=== PATIENT | female | born 1940 | race Two or more races ===

== ENCOUNTER 2024-07-20 12:02 | Inpatient (IN) | payer OTHER ==
[~2024-07-20] VITALS: Ht 147.3 cm; Wt 65.0 kg
--- NOTE | 2024-07-20 12:51 | ED.PDOC ---
History of Present Illness HPI Comments 84-year-old female with PMHx Dementia presents with a chief complaint of generalized weakness x onset this morning with associated cough x onset yesterday. Patients daughter reports that patient has been increasingly weak that she noticed started this morning. Patient does have sick contacts at home and has a cough as well. Patient is soft spoken, but states that she has no complaints at this time. Time Seen by MD: 12:39 Reviewed Notes: Medications, Allergies Allergies: Coded Allergies: NO KNOWN ALLERGIES (Unverified , 07/20/24) Information Source: Patient, Relative (Child) Mode of Arrival: Ambulatory Severity: Moderate Timing: Days Duration: Since onset Prehospital treatment: None Past Medical History PAST MEDICAL HISTORY: Dementia Surgical History: Denies all surgeries SENIOR HR GENERALIST History: Denies all SENIOR HR GENERALIST Hx Family History Family History: Reviewed,noncontributory to illness Social History Smoker: Non-Smoker Alcohol: Denies ETOH Use Drugs: Denies Drug Use Lives In: Home Constitutional: reports: weakness; denies: chills, diaphoresis, fatigue, fever, malaise, sweats, others EENTM: denies: blurred vision, double vision, ear bleeding, ear discharge, ear drainage, ear pain, ear ringing, eye pain, eye redness, hearing loss, mouth pain, mouth swelling, nasal discharge, nose bleeding, nose congestion, nose pain, photophobia, tearing, throat pain, throat swelling, voice changes, others Respiratory: reports: cough; denies: hemoptysis, orthopnea, SOB at rest, shortness of breath, SOB with excertion, stridor, wheezing, others Cardiovascular: denies: chest pain, dizzy spells, diaphoresis, Dyspnea on exertion, edema, irregular heart beat, left arm pain, lightheadedness, palp itations, PND, syncope, others Gastrointestinal: denies: abdomen distended, abdominal pain, blood streaked bowels, constipated, diarrhea, dysphagia, difficulty swallowing, hematemesis, melena, nausea, poor appetite, poor fluid intake, rectal bleeding, rectal pain, vomiting, others Genitourinary: denies: abnormal vagina bleeding, burning, dyspareunia, dysuria, flank pain, frequency, hematuria, incontinence, pain, , vagina discharge, urgency, others Neurological: denies: dizziness, fainting, headache, left sided numbness, left sided weakness, numbness, paresthesia, pre-existing deficit, right sided numbness, right sided weakness, seizure, speech problems, tingling, tremors, weakness, others Musculoskeletal: denies: back pain, gout, joint pain, joint swelling, muscle pain, muscle stiffness, neck pain, others Integumetry: denies: bruises, change in color, change in hair/nails, dryness, laceration, lesions, lumps, rash, wounds, others Allergic/Immunocompromised: denies: Difficulty Healing, Frequent Infections, Hives, Itching, others Hematologic/Lymphatic: denies: anemia, blood clots, easy bleeding, easy br uising, swollen glands, others Endocrine: denies: excessive hunger, excessive sweating, excessive thirst, excessive urination, flushing, intolerance to cold, intolerance to heat, unexplained weight gain, unexplained weight loss, others Psychiatric: denies: anxiety, bipolar disorder, depression, hopeless, panic disorder, schizophrenia, sleepless, suicidal, others All Other Systems: Reviewed and Negative Physical Exam General Appearance: Moderate Distress HEENT: Normal ENT Inspection, Pharynx Normal, TMs Normal Neck: Full Range of Motion, Non-Tender, Normal, Normal Inspection Respiratory: Chest Non-Tender, Lungs Clear, No Accessory Muscle Use, No Respiratory Distress, Normal Breath Sounds Cardiovascular: No Edema, No JVD, No Murmur, No Gallop, Normal Peripheral Pulses, Regular Rate/Rhythm Breast Exam: Deferred Gastrointestinal: No Organomegaly, Non Tender, No Pulsatile Mass, Normal Bowel Sounds, Soft Genitalia: Deferred Pelvic: Deferred Rectal: Deferred Extremities: No calf tenderness, Normal capillary refill, No pedal edema Musculoskeletal : Apperance: Normal Neurologic: senior planning analyst II-XII nml as Tested, Motor Weakness, No Sensory Deficits, Other (Generalized weakness) Cerebellar Function: Normal Reflexes: Normal Skin: Dry, Pallor, Warm Lymphatic: No Adenopathy Was a procedure done? Was a procedure done?: No Differential Dx Considerations may include: Generalized weakness, CVA, UTI X-Ray, Labs, Meds, VS Vital Signs Date Time Temp Pulse Resp B/P (MAP) Pulse Ox O2 Delivery O2 Flow Rate FiO2 07/20/24 13:10 100.7 107 20 128/74 (92) 96 Lab Test 07/20/24 15:16 07/20/24 14:21 Range/Units Urine Color Yellow Yellow Urine Clarity Clear Clear Urine pH 5.0 5.0-9.0 Urine Specific [place] 1.028 1.001-1.035 Urine Protein 1+ H Negative Urine Ketones Trace Negative Urine Blood Negative Negative /uL Urine Nitrite Negative Negative Urine Bilirubin Negative Negative Urine Urobilinogen Normal Negative mg/dL Urine Leukocyte Esterase Negative Negative /uL Urine RBC 3 0 - 4 /hpf Urine Microscopic WBC 1 0-5 /HPF Urine Squamous Epithelial Cells Few <5 /hpf Urine Bacteria None seen None Seen /hpf Urine Mucus Few None Seen Urine Glucose Normal Normal mg/dL White Blood Count 7.0 4.4-10.8 10^3/uL Red Blood Count 4.65 4.0-5.20 10^6/uL Hemoglobin 13.1 12.2-16.2 g/dL Hematocrit 40.0 36.0-46.0 % Mean Corpuscular Volume 86.1 80.0-100.0 fL Mean Corpuscular Hemoglobin 28.1 28.0-32.0 pg Mean Corpuscular Hemoglobin Concent 32.6 32.0-36.0 g/dL Red Cell Distribution Width 15.2 H 11.8-14.3 % Platelet Count 179 140-450 10^3/uL Mean Platelet Volume 8.6 6.9-10.8 fL Neutrophils (%) (Auto) 88.4 H 37.0-80.0 % Lymphocytes (%) (Auto) 5.1 L 10.0-50.0 % Monocytes (%) (Auto) 6.2 0.0-12.0 % Eosinophils (%) (Auto) 0.1 0.0-7.0 % Basophils (%) (Auto) 0.2 0.0-2.0 % Neutrophils # (Auto) 6.2 1.6-8.6 10 ^3/uL Lymphocytes # (Auto) 0.4 0.4-5.4 10 ^3/uL Monocytes # (Auto) 0.4 0-1.3 10 ^3/uL Eosinophils # (Auto) 0 0-0.8 10 ^3/uL Basophils # (Auto) 0 0-0.2 10 ^3/uL Nucleated Red Blood Cells 0.1 % Sodium Level 137 136-145 mmol/L Potassium Level 3.5 3.5-5.1 mmol/L Chloride Level 101 98-107 mmol/L Carbon Dioxide Level 25 20-31 mmol/L Anion Gap 11 5-15 Blood Urea Nitrogen 17 9-23 mg/dL Creatinine 1.04 H 0.550-1.02 mg/dL Glomerular Filtration Rate Calc 53 >90 mL/min BUN/Creatinine Ratio 16.3 10.0-20.0 Serum Glucose 127 H 74-106 mg/dL Calcium Level 9.8 8.7-10.4 mg/dL Chest X-Ray Impression: No acute intrathoracic abnormality. At this time the patient's CBC is within normal limits The chemistry panel is within normal limits The urine test is negative At this time, the patient was being admitted to the hospitalist The patient is still having some generalized weakness Images Reviewed?: Images reviewed and evaluated by me Time of 1ST Reevaluation: 13:09 Reevaluation 1ST: Unchanged Patient Education/Counseling: Diagnosis, Treatment, Prognosis Family Education/Counseling: Diagnosis, Treatment, Prognosis Departure 1 Departure Time of Disposition: 18:10 Impression: Primary Impression: Generalized weakness Disposition: ADMITTED INPATIENT Admit to: Med Surg Condition: Fair Critical Care Note Critical Care Time?: No Stability Stability form required: Yes Unstable for transfer: ED Physician Assesment (Clinical assesment) Heart Score Heart Score: Heart Score Response (Comments) Value History N/A 0 EKG N/A 0 Age N/A 0 Risk Factors N/A 0 Troponin N/A 0 Total 0 I personally scribed for ELLIS BUNN MD ([email or web address]) on 07/20/24 at 12:51. Electronically submitted by Nixon Harris ([email or web address]). I personally scribed for ELLIS BUNN MD ([email or web address]) on 07/20/24 at 15:54. Electronically submitted by Nixon Harris ([email or web address]). ELLIS BUNN MD Jul 20, 2024 12:51
--- NOTE | 2024-07-20 13:29 | DVH ---
XY CHEST TWO VIEWS ROUTINE, HISTORY: weakness COMPARISON: None None TECHNICAL DATA: 1 view of the chest was obtained. FINDINGS: Lines and tubes: None Cardiomediastinal silhouette: normal Pulmonary vasculature: normal Lung expansion: low Lung airspace: normal Lung interstitium: normal Pleura: normal Pneumothorax: no Bones: Rightward cuvature of the thoracic spine. Other: no IMPRESSION: No acute intrathoracic abnormality.
[2024-07-20 15:00] LABS: Basophils # (auto) 0 10 ^3/uL (0-0.2); Basophils % (auto) 0.2 % (0.0-2.0); Eosinophils # (auto) 0 10 ^3/uL (0-0.8); Eosinophils % (auto) 0.1 % (0.0-7.0); Hemoglobin 13.1 g/dL (12.2-16.2); Lymphocytes # (auto) 0.4 10 ^3/uL (0.4-5.4); Lymphocytes % (auto) 5.1 % (10.0-50.0); Mean Corpuscular Hemoglobin 28.1 pg (28.0-32.0); Mean Corpuscular Hgb Conc. 32.6 g/dL (32.0-36.0); Mean Corpuscular Volume 86.1 fL (80.0-100.0); Monocytes # (auto) 0.4 10 ^3/uL (0-1.3); Monocytes % (auto) 6.2 % (0.0-12.0); Neutrophils # (auto) 6.2 10 ^3/uL (1.6-8.6); Neutrophils % (auto) 88.4 % (37.0-80.0); Nucleated Red Blood Cells % 0.1 %; Platelet Count (auto) 179 10^3/uL (140-450); Red Blood Cells 4.65 10^6/uL (4.0-5.20); Red Cell Distribution Width 15.2 % (11.8-14.3)
[2024-07-20 15:14] LABS: Chloride 101 mmol/L (98-107); Potassium 3.5 mmol/L (3.5-5.1); Sodium 137 mmol/L (136-145)
[2024-07-20 15:15] LABS: Anion Gap 11 (5-15); Calcium 9.8 mg/dL (8.7-10.4); Carbon Dioxide 25 mmol/L (20-31)
[2024-07-20 15:18] LABS: Urine Bacteria None Seen /hpf (None Seen)
[2024-07-20 15:20] LABS: BUN/Creatinine Ratio 16.3 (10.0-20.0); Blood Urea Nitrogen 17 mg/dL (9-23)
[2024-07-20 15:31] LABS: Glucose 127 mg/dL (74-106)
[2024-07-20 15:34] LABS: Urine Blood Negative /uL (Negative); Urine Clarity Clear (Clear); Urine Color Yellow (Yellow); Urine Mucus FEW (None Seen); Urine Protein, UAD 1+ (Negative); Urine Specific Gravity 1.028 (1.001-1.035); Urine Squamous Epithelial Cell FEW /hpf (<5); Urine Urobilinogen Normal (Negative); Urine WBC 1 /HPF (0-5)
--- NOTE | 2024-07-20 21:50 | DVHHPRES ---
History of Present Illness Resident Creating Document: SAMEERA BOYER RESDIENT History of Present Illness 84-year-old female with no significant past medical history brought to the hospital due to generalized weakness. Per patient's daughter, the patient has a sick contact 5 days back which later on the patient developed cough, shortness of breaths, decreased oral intake, and progressively became altered. Due to altered mental status, the patient's could not provide proper history. Per patient's daughter, she has no fever, nausea, vomiting, diarrhea, constipation, or dysuria. PMHx: Age-related cognitive decline PSHx: Not significant Social history: Patient lives with the family at home, denies smoking, alcohol or any other drug use Allergic history: No known allergies Review of Systems Review of Systems General: Reports generalized weakness, decreased oral intake HEENT: No headaches, visiual changes, hearing loss, tinnitus, nasal congestion and discharge, and sore throat. Cardiovascular: Denies chest pain, palpitations, dyspnea on exertion, orthopnea, or claudication. Respiratory: Reports cough and shortness of breath Gastrointestinal: Denies nausea, vomiting, dysphagia, odynophagia, heartburn, abdominal pain, flatulence, bloating, diarrhea, constipation, change in stool, or blood in stool. Genitourinary: No dysuria, hematuria, discharge, frequency, urgency, nocturia, incontinence, and urinary retention. Endocrine: No heat or cold intolerance, polydipsia, polyuria, and polyphagia. Neurological: Per patient's daughter the, the patient is being more altered from baseline Psychiatric: Denies depression, anxiety,or insomnia. Musculoskeletal: Denies neck pain, stiffness and swelling, back pain, muscle weakness, joint pain, stiffness, swelling, or limited range of motion. Skin: No rashes, itching, skin lesion, changes in hair, nail, skin texture and breast. Hematologic/Lymphatic: Denies easy bruising, bleeding tendencies, or lymph node enlargement. Allergies: Coded Allergies: NO KNOWN ALLERGIES (Unverified , 07/20/24) Exam Vital Signs Vital Signs Date Time Temp Pulse Resp B/P (MAP) Pulse Ox O2 Delivery O2 Flow Rate FiO2 07/20/24 13:10 100.7 107 20 128/74 (92) 96 Exam General Appearance: Confused, just oriented to person, disoriented to time and place HEENT: Atraumatic, PERRLA, EOMI, Mucous membrane moist/pink Respiratory: Bilateral crackles Cardiovascular: Regular rate, Normal S1, Normal S2, No murmurs, no chest wall tenderness Abdominal: Normal bowel sounds, Soft, No tenderness, No hepatospenomegaly, No masses Extremities: No clubbing, No cyanosis, No edema, Normal pulses, No tenderness/swelling Skin: No rashes, No breakdown, No significant lesion Neuro: Normal gait, Normal speech, Strength at 5/5 X4 ext, Normal tone, Sensation intact, Cranial nerves 3-12 NL, Reflexes 2+ Psych/Mental Status: Mental status NL, Mood NL Labs/Xrays Labs Test 07/20/24 15:16 07/20/24 14:21 Range/Units Urine Color Yellow Yellow Urine Clarity Clear Clear Urine pH 5.0 5.0-9.0 Urine Specific [place] 1.028 1.001-1.035 Urine Protein 1+ H Negative Urine Ketones Trace Negative Urine Blood Negative Negative /uL Urine Nitrite Negative Negative Urine Bilirubin Negative Negative Urine Urobilinogen Normal Negative mg/dL Urine Leukocyte Esterase Negative Negative /uL Urine RBC 3 0 - 4 /hpf Urine Microscopic WBC 1 0-5 /HPF Urine Squamous Epithelial Cells Few <5 /hpf Urine Bacteria None seen None Seen /hpf Urine Mucus Few None Seen Urine Glucose Normal Normal mg/dL White Blood Count 7.0 4.4-10.8 10^3/uL Red Blood Count 4.65 4.0-5.20 10^6/uL Hemoglobin 13.1 12.2-16.2 g/dL Hematocrit 40.0 36.0-46.0 % Mean Corpuscular Volume 86.1 80.0-100.0 fL Mean Corpuscular Hemoglobin 28.1 28.0-32.0 pg Mean Corpuscular Hemoglobin Concent 32.6 32.0-36.0 g/dL Red Cell Distribution Width 15.2 H 11.8-14.3 % Platelet Count 179 140-450 10^3/uL Mean Platelet Volume 8.6 6.9-10.8 fL Neutrophils (%) (Auto) 88.4 H 37.0-80.0 % Lymphocytes (%) (Auto) 5.1 L 10.0-50.0 % Monocytes (%) (Auto) 6.2 0.0-12.0 % Eosinophils (%) (Auto) 0.1 0.0-7.0 % Basophils (%) (Auto) 0.2 0.0-2.0 % Neutrophils # (Auto) 6.2 1.6-8.6 10 ^3/uL Lymphocytes # (Auto) 0.4 0.4-5.4 10 ^3/uL Monocytes # (Auto) 0.4 0-1.3 10 ^3/uL Eosinophils # (Auto) 0 0-0.8 10 ^3/uL Basophils # (Auto) 0 0-0.2 10 ^3/uL Nucleated Red Blood Cells 0.1 % Sodium Level 137 136-145 mmol/L Potassium Level 3.5 3.5-5.1 mmol/L Chloride Level 101 98-107 mmol/L Carbon Dioxide Level 25 20-31 mmol/L Anion Gap 11 5-15 Blood Urea Nitrogen 17 9-23 mg/dL Creatinine 1.04 H 0.550-1.02 mg/dL Glomerular Filtration Rate Calc 53 >90 mL/min BUN/Creatinine Ratio 16.3 10.0-20.0 Serum Glucose 127 H 74-106 mg/dL Calcium Level 9.8 8.7-10.4 mg/dL Assessment/Plan Assessment/Plan Metabolic encephalopathy likely due to pneumonia Pneumonia, likely due to Gram-positive Gram-negative bacteria/viral Influenza type A Chest x-ray shows bilateral haziness Influenza type a is positive Influenza type B and COVID-19 are negative Check MRSA nares, blood/sputum culture Empiric antibiotic of azithromycin and ceftriaxone Tamiflu IV fluid Breathing treatment Age-related cognitive dysfunction DIET: Regular diet DVT PROPHYLAXIS: Lovenox CODE STATUS: Follow up with the side of more than 21 minutes, full code DISPOSITION: Med/surge Patient's status and paln discussed with the patient and the patient's daughter at the bedside. Case discussed with Dr. Quezada. Plan discussed with: Patient, Other (RN) Date of Service: Jul 20, 2024 Billing Provider: RUDDY HORTON MD Common Visit Codes: [id number] INP/OBS CARE (HIGH) SAMEERA BOYER RESDIENT Jul 20, 2024 21:50 RUDDY HORTON MD Jul 27, 2024 15:55
[2024-07-20 22:25] VITALS: PULSE 86; RESP 26; O2SAT 96
[2024-07-20] MEDS: ACETAMINOPHEN 325 MG TAB PO ONE (22:39)
[2024-07-20] MEDS: SODIUM CHLORIDE 0.9% 1,000 ML IV SCH (22:45)
[2024-07-20 22:58] LABS: Rapid Influenza A Positive (Negative); Rapid Influenza B Negative (Negative)
[2024-07-20 23:20] LABS: COVID19 ANTIGEN SOFIA FIA NEGATIVE (NEGATIVE)
[2024-07-20 23:27] LABS: Amphetamine Screen, Urine Neg (NEGATIVE); Barbiturate Scree,Urine Neg (NEGATIVE); Benzodiazephine Screen, Urine Neg (NEGATIVE); Cannabinoid Screen, Urine Neg (NEGATIVE); Cocaine Screen, Urine Neg (NEGATIVE); Opiate Scree,Urine Neg (NEGATIVE); Phencyclidine Screen, Urine Neg (NEGATIVE)
[2024-07-20 23:39] VITALS: PULSE 82; RESP 24; O2SAT 93
[2024-07-20 23:43] LABS: Albumin 4.6 g/dL (3.2-4.8); Bilirubin, Direct 0.1 mg/dL (<0.3); Bilirubin, Total 0.4 mg/dL (0.2-1.0); Total Protein 7.9 g/dL (5.7-8.2)
[2024-07-21] VITALS (20 sets, daily range): BP systolic 119–143; BP diastolic 50–72; PULSE 72–102; RESP 15–24; TEMP 98.3–102.2; O2SAT 91–100
[2024-07-21] MEDS: SODIUM CHLORIDE 0.9% 1,000 ML IV ONE (00:08)
[2024-07-21] MEDS: cefTRIAXone 1GM/50ML D5W 50 ML IV ONE (00:08)
[2024-07-21] MEDS: ENOXAPARIN SOD 40 MG/0.4 ML SYRINGE SC ONE (00:09)
[2024-07-21] MEDS: AZITHROMYCIN 500MG/ 250ML 250 ML IV ONE (01:03)
[2024-07-21] MEDS ORDERED: MULT-1058 PO (04:22)
[2024-07-21] MEDS: OSELTAMIVIR 30 MG CAP PO ONE (05:54)
[2024-07-21] MEDS: ALBUTEROL SULF 2.5 MG/0.5ML(0.5%) NEB SOLN NEB SCH (08:03)
[2024-07-21] MEDS: IPRATROPIUM BROM 0.5 MG/2.5ML INH SOL NEB SCH (08:06)
[2024-07-21 09:36] LABS: Basophils # (auto) 0 10 ^3/uL (0-0.2); Basophils % (auto) 0.3 % (0.0-2.0); Eosinophils # (auto) 0 10 ^3/uL (0-0.8); Hematocrit 35.6 % (36.0-46.0); Hemoglobin 11.5 g/dL (12.2-16.2); Lymphocytes # (auto) 1.4 10 ^3/uL (0.4-5.4); Lymphocytes % (auto) 28.3 % (10.0-50.0); Mean Corpuscular Hemoglobin 27.8 pg (28.0-32.0); Mean Corpuscular Hgb Conc. 32.3 g/dL (32.0-36.0); Mean Corpuscular Volume 86.3 fL (80.0-100.0); Monocytes # (auto) 0.5 10 ^3/uL (0-1.3); Monocytes % (auto) 10.5 % (0.0-12.0); Neutrophils # (auto) 3.1 10 ^3/uL (1.6-8.6); Neutrophils % (auto) 60.9 % (37.0-80.0); Nucleated Red Blood Cells % 0.1 %; Platelet Count (auto) 171 10^3/uL (140-450); Red Blood Cells 4.12 10^6/uL (4.0-5.20); Red Cell Distribution Width 15.1 % (11.8-14.3); White Blood Cell 5.1 10^3/uL (4.4-10.8)
[2024-07-21] MEDS: cefTRIAXone 1GM/50ML D5W 50 ML IV SCH (09:37)
[2024-07-21 09:39] LABS: Alanine Aminotransferase 19 U/L (7-40); Alkaline Phosphatase 78 U/L (46-116); Anion Gap 9 (5-15); BUN/Creatinine Ratio 16.3 (10.0-20.0); Blood Urea Nitrogen 15 mg/dL (9-23); Carbon Dioxide 27 mmol/L (20-31); Chloride 105 mmol/L (98-107); Glucose 104 mg/dL (74-106); Sodium 141 mmol/L (136-145)
[2024-07-21] MEDS: ENOXAPARIN SOD 40 MG/0.4 ML SYRINGE SC SCH (09:39)
[2024-07-21 09:40] LABS: Albumin 4.1 g/dL (3.2-4.8); Aspartate Aminotransferase 35 U/L (13-40)
[2024-07-21 09:41] LABS: Bilirubin, Total 0.3 mg/dL (0.2-1.0); Total Protein 7.1 g/dL (5.7-8.2)
[2024-07-21 09:44] LABS: Calcium 8.6 mg/dL (8.7-10.4)
[2024-07-21] MEDS: POTASSIUM CHL 20MEQ/100ML 100 ML IV SCH (11:29)
--- NOTE | 2024-07-21 12:42 | ECG ---
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
[2024-07-21] MEDS ORDERED: ACETAMINOPHEN 325 MG TAB PO PRN (13:15)
[2024-07-21] MEDS: Ensure HIGH Protein Chocolate 8oz Bottle PO SCH (13:23)
[2024-07-21] MEDS: AZITHROMYCIN 500MG/ 250ML 250 ML IV SCH (13:26)
--- NOTE | 2024-07-21 19:12 | DVHPNRES ---
Progress Note Date Seen: Jul 21, 2024 Resident Creating Document: CAMPBELL LEDBETTER RESIDENT Has the PT tested + for MRSA If YES, has PT been informed?: No Medical Necessity Reason Pt with a Central, PICC or Fol: No Subjective Review of Systems 84-year-old female with no significant past medical history brought to the hospital due to generalized weakness. Per patient's daughter, the patient has a sick contact 5 days back which later on the patient developed cough, shortness of breaths, decreased oral intake, PMHx: Age-related cognitive decline, remote history of HTN PSHx: Not significant Social history: Patient lives with the family at home, denies smoking, alcohol or any other drug use Allergic history: No known allergies Objective vital signs Vital Sign Date Time Temp Pulse Resp B/P (MAP) Pulse Ox O2 Delivery O2 Flow Rate FiO2 07/21/24 18:40 98.7 98.7 07/21/24 17:00 102 16 125/55 (78) 93 07/21/24 10:00 Room Air* 0 21 Total Intake and Output 07/20/24 07/20/24 07/21/24 15:00 23:00 07:00 Intake Total 1870 ml Output Total 125 ml Balance 1745 ml medications Current Medications Medications Dose Ordered Sig/Roger Route Start Time Stop Time Status Last Admin Dose Admin Ceftriaxone Sodium 50 ml @ 100 mls/hr DAILY@09 IV 07/21/24 09:00 07/21/24 09:37 100 MLS/HR Azithromycin 250 ml @ 125 mls/hr DAILY IV 07/21/24 10:00 07/21/24 13:26 125 MLS/HR Sodium Chloride 1,000 ml @ 100 mls/hr Q10H IV 07/20/24 22:45 07/21/24 02:45 100 MLS/HR Albuterol 2.5 mg Q4HWA BANNER 07/21/24 06:00 07/21/24 14:16 2.5 MG Ipratropium [place] 0.5 mg Q4HWA BANNER 07/21/24 06:00 07/21/24 14:16 0.5 MG Enoxaparin Sodium 40 mg DAILY SC 07/21/24 10:00 07/21/24 09:39 40 MG Oseltamivir Phosphate 30 mg DAILY PO 07/22/24 10:00 07/25/24 10:01 Enteral Nutritional Formula 240 ml TIDWM PO 07/21/24 12:00 07/21/24 18:39 240 ML Acetaminophen 600 mg Q6HP PRN PO 07/21/24 13:15 Examination General Appearance: alert HEENT: Atraumatic, PERRLA, EOMI, Mucous membrane moist/pink Respiratory: clear lungs Cardiovascular: Regular rate, Normal S1, Normal S2, No murmurs, no chest wall tenderness Abdominal: Normal bowel sounds, Soft, No tenderness, No hepatospenomegaly, No masses Extremities: No clubbing, No cyanosis, No edema, Normal pulses, No tenderness/swelling Skin: No rashes, No breakdown, No significant lesion Neuro: Normal gait, Normal speech, Strength at 5/5 X4 ext, Normal tone, Sensation intact, Cranial nerves 3-12 NL, Reflexes 2+ Psych/Mental Status: Mental status NL, Mood NL laboratory and microbiology Laboratory Tests 07/21/24 08:30 Test 07/21/24 08:30 Range/Units Serum Glucose 104 74-106 mg/dL Microbiology Date/Time Source Procedure Growth Status 07/21/24 08:14 Sputum Gram Stain - Final Resulted 07/21/24 08:14 Sputum Respiratory Culture Pending Resulted 07/21/24 06:00 Nose MRSA Screen - Final Complete Problem List/Assessment/Plan Problem List/Assessment/Plan Metabolic encephalopathy likely due to pneumonitis resolved Viral pneumonitis Influenza type A Chest x-ray shows bilateral haziness Influenza type a is positive Influenza type B and COVID-19 are negative Check MRSA nares, blood/sputum culture Empiric antibiotic of azithromycin and ceftriaxone Tamiflu Breathing treatment Hypokalemia K IV + Age-related cognitive dysfunction DIET: Regular diet DVT PROPHYLAXIS: Lovenox CODE STATUS: Follow up with the side of more than 21 minutes, full code DISPOSITION: Med/surge Patient's status and paln discussed with the patient and the patient's daughter at the bedside. Case discussed with Dr. Harris Plan discussed with: Patient, Other (rn) My Orders My Orders Orders - CAMPBELL LEDBETTER RESIDENT Procedure Category Date Status Time Nutritional PHA 07/21/24 In Process Supplements (Ensure 12:00 Insert Midline ORDERS 07/21/24 Transmitted 12:45 Acetaminophen Tablet PHA 07/21/24 In Process (Tylenol Tablet) 13:15 Date of Service: Jul 21, 2024 Billing Provider: YOSEPH HARRIS MD Common Visit Codes: [id number] INP/OBS CARE(HIGH) CAMPBELL LEDBETTER RESIDENT Jul 21, 2024 19:12 YOSEPH HARRIS MD Jul 25, 2024 09:23
[2024-07-22] VITALS (12 sets, daily range): BP systolic 111–131; BP diastolic 62–68; PULSE 60–100; RESP 16–18; TEMP 98–99.7; O2SAT 68–100
[2024-07-22] MEDS: OSELTAMIVIR 30 MG CAP PO SCH (08:57)
[2024-07-22] MEDS: BUDESONIDE (INHALATION) 0.5 MG/2 ML NEB NEB SCH (10:31)
[2024-07-22] MEDS ORDERED: TAMIF30 PO (13:19)
[2024-07-22] MEDS ORDERED: ALB5IS NEB (13:19)
[2024-07-22] MEDS ORDERED: DEXT1SYP9 PO (13:19)
[2024-07-22] MEDS ORDERED: ACET-1882 PO (13:19)
[2024-07-22 14:29] LABS: Chloride 105 mmol/L (98-107); Potassium 3.6 mmol/L (3.5-5.1); Sodium 140 mmol/L (136-145)
[2024-07-22 14:30] LABS: Anion Gap 8 (5-15); Calcium 8.3 mg/dL (8.7-10.4); Carbon Dioxide 27 mmol/L (20-31)
[2024-07-22 14:35] LABS: BUN/Creatinine Ratio 16.3 (10.0-20.0); Blood Urea Nitrogen 14 mg/dL (9-23)
[2024-07-22 14:43] LABS: Glucose 162 mg/dL (74-106)
[2024-07-22] MEDS ORDERED: ALBUAER3 IN (19:05)
--- NOTE | 2024-07-22 19:10 | DVHDSRES ---
Discharge Summary Date of Admission Resident Creating Document: CAMPBELL LEDBETTER RESIDENT Jul 20, 2024 at 21:49 Date of Discharge: Jul 22, 2024 Admitting Diagnosis Metabolic encephalopathy likely due to pneumonitis resolved Labs/Diagnostic Data: Laboratory Results Test 07/22/24 14:04 07/21/24 08:30 07/20/24 23:12 07/20/24 22:16 Sodium Level 140 mmol/L (136-145) Potassium Level 3.6 mmol/L (3.5-5.1) Chloride Level 105 mmol/L (98-107) Carbon Dioxide Level 27 mmol/L (20-31) Anion Gap 8 (5-15) Blood Urea Nitrogen 14 mg/dL (9-23) Creatinine 0.86 mg/dL (0.550-1.02) Glomerular Filtration Rate Calc 67 mL/min (>90) BUN/Creatinine Ratio 16.3 (10.0-20.0) Serum Glucose 162 mg/dL (74-106) Calcium Level 8.3 mg/dL (8.7-10.4) White Blood Count 5.1 10^3/uL (4.4-10.8) Red Blood Count 4.12 10^6/uL (4.0-5.20) Hemoglobin 11.5 g/dL (12.2-16.2) Hematocrit 35.6 % (36.0-46.0) Mean Corpuscular Volume 86.3 fL (80.0-100.0) Mean Corpuscular Hemoglobin 27.8 pg (28.0-32.0) Mean Corpuscular Hemoglobin Concent 32.3 g/dL (32.0-36.0) Red Cell Distribution Width 15.1 % (11.8-14.3) Platelet Count 171 10^3/uL (140-450) Mean Platelet Volume 8.5 fL (6.9-10.8) Neutrophils (%) (Auto) 60.9 % (37.0-80.0) Lymphocytes (%) (Auto) 28.3 % (10.0-50.0) Monocytes (%) (Auto) 10.5 % (0.0-12.0) Eosinophils (%) (Auto) 0.0 % (0.0-7.0) Basophils (%) (Auto) 0.3 % (0.0-2.0) Neutrophils # (Auto) 3.1 10 ^3/uL (1.6-8.6) Lymphocytes # (Auto) 1.4 10 ^3/uL (0.4-5.4) Monocytes # (Auto) 0.5 10 ^3/uL (0-1.3) Eosinophils # (Auto) 0 10 ^3/uL (0-0.8) Basophils # (Auto) 0 10 ^3/uL (0-0.2) Nucleated Red Blood Cells 0.1 % Hemoglobin A1c 5.9 % A1C (<5.7) Total Bilirubin 0.3 mg/dL (0.2-1.0) Aspartate Amino Transferase (AST) 35 U/L (13-40) Alanine Aminotransferase (ALT) 19 U/L (7-40) Alkaline Phosphatase 78 U/L (46-116) Total Protein 7.1 g/dL (5.7-8.2) Albumin 4.1 g/dL (3.2-4.8) Lactic Acid Level 1.2 mmol/L (0.4-2.0) Magnesium Level 2.0 mg/dL (1.6-2.6) Direct Bilirubin 0.1 mg/dL (<0.3) Ammonia 28 umol/L (11-32) Vitamin B12 Level 948 pg/mL (211-911) Vitamin D 25-Hydroxy 31.6 ng/mL (30.0-100) Thyroid Stimulating Hormone (TSH) 0.44 uIU/mL (0.55-4.78) Influenza Type A Antigen Positive (Negative) Influenza Type B Antigen Negative (Negative) SARS-CoV-2 Antigen (Rapid) Negative (NEGATIVE) Test 07/20/24 15:16 Urine Color Yellow (Yellow) Urine Clarity Clear (Clear) Urine pH 5.0 (5.0-9.0) Urine Specific [place] 1.028 (1.001-1.035) Urine Protein 1+ (Negative) Urine Ketones Trace (Negative) Urine Blood Negative /uL (Negative) Urine Nitrite Negative (Negative) Urine Bilirubin Negative (Negative) Urine Urobilinogen Normal mg/dL (Negative) Urine Leukocyte Esterase Negative /uL (Negative) Urine RBC 3 /hpf (0 - 4) Urine Microscopic WBC 1 /HPF (0-5) Urine Squamous Epithelial Cells Few /hpf (<5) Urine Bacteria None seen /hpf (None Seen) Urine Mucus Few (None Seen) Urine Glucose Normal mg/dL (Normal) Urine Opiates Screen Neg (NEGATIVE) Urine Fentanyl Screen Neg (NEGATIVE) Urine Barbiturates Screen Neg (NEGATIVE) Urine Phencyclidine Screen Neg (NEGATIVE) Urine Amphetamines Screen Neg (NEGATIVE) Urine Benzodiazepines Screen Neg (NEGATIVE) Urine Cocaine Screen Neg (NEGATIVE) Urine Cannabinoids Screen Neg (NEGATIVE) Other Laboratory Tests 07/22/24 14:04 07/21/24 08:30 Brief Hx & Hospital Course: An 84-year-old female with 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 Imaging revealed bilateral chest haziness, and testing was positive for influenza type A. The patient was diagnosed with viral pneumonitis and metabolic encephalopathy secondary to her respiratory condition. Treatment included supportive care with Tamiflu, empiric antibiotics (azithromycin and ceftriaxone), and breathing treatments, along with electrolyte repletion for hypokalemia. The patient showed significant clinical improvement with resolution of encephalopathy and stabilization of respiratory symptoms. She was discharge with tylenol, albuterol, cough syrup and oseltamivir. Her status was thoroughly discussed with her and her family at the bedside to ensure understanding of the management plan and follow-up needs. General Appearance: alert HEENT: Atraumatic, PERRLA, EOMI, Mucous membrane moist/pink Respiratory: clear lungs Cardiovascular: Regular rate, Normal S1, Normal S2, No murmurs, no chest wall tenderness Abdominal: Normal bowel sounds, Soft, No tenderness, No hepatospenomegaly, No masses Extremities: No clubbing, No cyanosis, No edema, Normal pulses, No tenderness/swelling Skin: No rashes, No breakdown, No significant lesion Neuro: Normal gait, Normal speech, Strength at 5/5 X4 ext, Normal tone, Sensation intact, Cranial nerves 3-12 NL, Reflexes 2+ Psych/Mental Status: Mental status NL, Mood NL Case discussed with Dr Harris Time spent on care 23 min Operations or Procedures XY CHEST TWO VIEWS ROUTINE, HISTORY: weakness COMPARISON: None None TECHNICAL DATA: 1 view of the chest was obtained. FINDINGS: Lines and tubes: None Cardiomediastinal silhouette: normal Pulmonary vasculature: normal Lung expansion: low Lung airspace: normal Lung interstitium: normal Pleura: normal Pneumothorax: no Bones: Rightward cuvature of the thoracic spine. Other: no IMPRESSION: No acute intrathoracic abnormality. Condition at Discharge: Stable Final Diagnosis/Problems List Metabolic encephalopathy likely due to pneumonitis resolved Viral pneumonitis Influenza type A Hypokalemia resolved Age-related cognitive dysfunction Discharge Disposition: Home Discharge Instruct/Medications Diet: Regular Activity: Light activity Follow Up/Referral: [facility] Medications: see prescription Discharge Statement: "Patient was advised to return to the ER or call 911 if any headaches, dizziness, shortness of breath, chest pain, abdominal pain, bleeding, fevers, or worsening of medical condition. Patient was counseled about treatment plan, medications, possible side effects, patientverbalized understanding. All questions were answered to the best of my ability. This discharge took greater then 30 minutes in planning, reviewing documentation, counseling the patient, and discussing with other team members." ASSESSMENT ASSESSMENT Assessment influenza Date of Service: Jul 22, 2024 Billing Provider: YOSEPH HARRIS MD Common Visit Codes: 33042-MUB/OBS DISCH DAY >30min CAMPBELL LEDBETTER RESIDENT Jul 22, 2024 19:10 YOSEPH HARRIS MD Jul 25, 2024 09:24
== END 2024-07-22 17:40 | disposition home or self-care (01) | DRG 193 ==
LOC: ER 12:02 → OVERFLOW 21:49 → WEST WING 07-21 01:53
PROVIDERS: ADMIT Student in an Organized Health Care Education/Training Program; ATTEND Student in an Organized Health Care Education/Training Program
DX: J10.1 Influenza due to other identified influenza virus with other respiratory manifestations (principal); G93.41 Metabolic encephalopathy; J12.9 Viral pneumonia, unspecified; E87.6 Hypokalemia; Z20.822 Contact with and (suspected) exposure to COVID-19; F03.90 Unspecified dementia, unspecified severity, without behavioral disturbance, psychotic disturbance, mood disturbance, and anxiety
CPT/HCPCS: 36415; 71046; 80048; 80053; 80076; 80307; 81001; 82140; 82306; 82607; 83036; 83605; 83735; 84443; 85025; 87040; 87070; 87081; 87205; 87426; 87804; 93005; 94640; 96365; 96367; 96372; G0378; G9035; J3480

== ENCOUNTER 2024-11-09 13:08 | Inpatient (IN) | payer OTHER ==
[~2024-11-09] VITALS: Ht 147.3 cm; Wt 60.9 kg
[~2024-11-09 13:08] MED LIST: ACET-1882 PO; ALBUAER3 IN; DEXT1SYP9 PO; MULT-1058 PO; TAMIF30 PO
--- NOTE | 2024-11-09 16:17 | ED.PDOC ---
Musculoskeletal HPI Comments 84 year old female brought in by daughter presents to the ED with chief complaint of right hip pain and fall. Daughter reports that the patient had complained of right hip pain and difficulty bearing weight yesterday when the patient normally is able to ambulate on her own. Daughter relays that today when leaving the patient in bed for a moment and coming back into the room, she found the patient on the floor and did not witness her fall. Daughter states that the patient does not remember the events leading to her fall due to her dementia and the patient had an associated vomiting episode after eating after her fall. Daughter notes she is unsure if patient hit her head or not. Patient denies any numbness, weakness, chest pain, and SOB. Chief Complaint: Fall Injury Time Seen by MD: 16:15 Reviewed Notes: Nurses Notes, Medications, Allergies Allergies: Coded Allergies: NO KNOWN ALLERGIES (Unverified , 07/20/24) Home Meds Active Scripts Albuterol Sulfate (VENTOLIN MDI) 90 Mcg Ih, 90 MCG IN TID for 10 Days, #1 INH Prov:CAMPBELL LEDBETTER 07/22/24 Dextromethorphan-Guaifenesin (Robitussin-Dm) 10 Ml Sr, 10 ML PO BID for 5 Days, #1 SYP Prov:CAMPBELL LEDBETTER [facility] 07/22/24 Acetaminophen (Acetaminophen) 325 Mg Tab, 600 MG PO Q6HP PRN for 5 Days, #37 TAB Prov:NAHID DriverCAMPBELL [facility] 07/22/24 Oseltamivir Phosphate (Tamiflu) 30 Mg Cp, 30 MG PO DAILY for 5 Days, #5 CAP Prov:CAMPBELL LEDBETTER [facility] 07/22/24 Reported Medications Multiple Vitamins W/ Minerals (Multivitamin) 1 Tab Tab, 1 TAB PO, TAB 07/21/24 Information Source: Patient, Relative (Child) Mode of Arrival: Wheelchair Location: Right Timing: Days Prehospital treatment: None Severity: Moderate Able to Move Extremity: Yes Bear Weight: Limited Pain: Moderate Mechanism: Spontaneous Circumstances: Fall, Spontaneous Symptoms: Pain DVT Risk Factors: NONE Associated signs and symptoms: Hip pain Past Medical History PAST MEDICAL HISTORY: Dementia, HTN Surgical History: Denies all surgeries 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 Hx Family History Family History: Reviewed,noncontributory to illness Social History Smoker: Non-Smoker Alcohol: Denies ETOH Use Drugs: Denies Drug Use Lives In: Home Constitutional: denies: chills, diaphoresis, fatigue, fever, malaise, sweats, weakness, others EENTM: denies: blurred vision, double vision, ear bleeding, ear discharge, ear drainage, ear pain, ear ringing, eye pain, eye redness, hearing loss, mouth pain, mouth swelling, nasal discharge, nose bleeding, nose congestion, nose pain, photophobia, tearing, throat pain, throat swelling, voice changes, others Respiratory: denies: cough, hemoptysis, orthopnea, SOB at rest, shortness of breath, SOB with excertion, stridor, wheezing, others Cardiovascular: denies: chest pain, dizzy spells, diaphoresis, Dyspnea on exertion, edema, irregular heart beat, left arm pain, lightheadedness, palpitations, PND, syncope, others Gastrointestinal: reports: nausea, vomiting; denies: abdomen distended, abdominal pain, blood streaked bowels, constipated, diarrhea, dysphagia, d ifficulty swallowing, hematemesis, melena, poor appetite, poor fluid intake, rectal bleeding, rectal pain, others Genitourinary: denies: abnormal vagina bleeding, burning, dyspareunia, dysuria, flank pain, frequency, hematuria, incontinence, pain, , vagina discharge, urgency, others Neurological: denies: dizziness, fainting, headache, left sided numbness, left sided weakness, numbness, paresthesia, pre-existing deficit, right sided numbness, right sided weakness, seizure, speech problems, tingling, tremors, weakness, others Musculoskeletal: reports: others (Right hip pain); denies: back pain, gout, joint pain, joint swelling, muscle pain, muscle stiffness, neck pain Integumetry: denies: bruises, change in color, change in hair/nails, dryness, laceration, lesions, lumps, rash, wounds, others Allergic/Immunocompromised: denies: Difficulty Healing, Frequent Infections, Hives, Itching, others Hematologic/Lymphatic: denies: anemia, blood clots, easy bleeding, easy bruising, swollen glands, others Endocrine: denies: excessive hunger, excessive sweating, excessive thirst, excessive urination, flushing, intolerance to cold, intolerance to heat, unexplained weight gain, unexplained weight loss, others Psychiatric: denies: anxiety, bipolar disorder, depression, hopeless, panic disorder, schizophrenia, sleepless, suicidal, others All Other Systems: Reviewed and Negative Physical Exam General Appearance: No Apparent Distress, Normal HEENT: Normal ENT Inspection, Pharynx Normal, TMs Normal Neck: Full Range of Motion, Non-Tender, Normal, Normal Inspection Respiratory: Chest Non-Tender, Lungs Clear, No Accessory Muscle Use, No Respiratory Distress, Normal Breath Sounds Cardiovascular: No Edema, No JVD, No Murmur, No Gallop, Normal Peripheral Pulses, Regular Rate/Rhythm Breast Exam: Deferred Gastrointestinal: No Organomegaly, Non Tender, No Pulsatile Mass, Normal Bowel Sounds, Soft Genitalia: Deferred Pelvic: Deferred Rectal: Deferred Extremities: No calf tenderness, Normal capillary refill, Normal inspection, Normal range of motion, Non-tender, No pedal edema Musculoskeletal : Location: Right Extremity Location: Hip Apperance: Tenderness Neurologic: Alert, helpdesk specialist II-XII nml as Tested, No Motor Deficits, Normal Affect, Normal Mood, No Sensory Deficits Cerebellar Function: Normal Reflexes: Normal Skin: Dry, Normal Color, Warm Lymphatic: No Adenopathy Was a procedure done? Was a procedure done?: No Differential Diagnosis EXT Differential Diagnosis: Fracture, Sprain, Dislocation, Contusion, Strain, Arthritis X-Ray, Labs, Meds, VS Vital Signs Date Time Temp Pulse Resp B/P (MAP) Pulse Ox O2 Delivery O2 Flow Rate FiO2 11/09/24 13:37 98.1 103 18 143/88 (106) 97 98.1 11/09/24 13:28 95 Lab Test 11/09/24 15:38 11/09/24 13:21 Range/Units Urine Color Yellow Yellow Urine Clarity Clear Clear Urine pH 5.5 5.0-9.0 Urine Specific [place] 1.019 1.001-1.035 Urine Protein Trace H Negative Urine Ketones Negative Negative Urine Blood Negative Negative /uL Urine Nitrite Negative Negative Urine Bilirubin Negative Negative Urine Urobilinogen Normal Negative mg/dL Urine Leukocyte Esterase Trace Negative /uL Urine RBC 22 0 - 4 /hpf Urine Microscopic WBC 5 0-5 /HPF Urine Squamous Epithelial Cells Few <5 /hpf Urine Bacteria Few H None Seen /hpf Urine Mucus Few None Seen Urine Glucose 2+ H Normal mg/dL POC Glucose 183 H 70-106 mg/dl Current Medications Medications (Trade) Dose Ordered Sig/Roger Route Start Time Stop Time Status Last Admin Acetaminophen/ Hydrocodone Bitart ([place] 5/325MG Tab) 1 tab ONCE ONCE PO 11/09/24 15:45 11/09/24 15:46 DC 11/09/24 16:25 Rt Hip XR: FINDINGS/IMPRESSION: There is no evidence of acute fracture or dislocation. The visualized joint space is well maintained. The alignment is anatomical. There is no radiopaque foreign body. Head CT: FINDINGS: There is no evidence of acute intracranial hemorrhage, extra-axial collection, mass effect, midline shift, herniation or hydrocephalus. The ventricles, sulci and cisterns are age appropriate. The rosario-white differentiation is intact. Patchy periventricular and subcortical white matter hypoattenuation is nonspecific but may be related to small vessel ischemic disease. The visualized paranasal sinuses and mastoid air cells are clear. The surrounding soft tissues and osseous structures are unremarkable. IMPRESSION: 1. No acute intracranial abnormality. Images Reviewed?: Images reviewed and evaluated by me Time of 1ST Reevaluation: 17:15 Reevaluation 1ST: Improved Patient Education/Counseling: Diagnosis, Treatment Family Education/Counseling: Diagnosis, Treatment Additional Information Reviewed patient's previous visit(s): 07/20/24 for generalized weakness The following tests were ordered, and results were reviewed by me: UA, EKG, head CT, Rt Hip XR Additional information was gathered from interviewing the following independent historian: Daughter I reviewed and agreed with the following test results read by other provider: Head CT, Rt Hip XR I discussed treatments and results with medical personnel and: PATIENT and daughter Comprehensive systems review obtained and negative except for what is stated in the HPI. Departure 1 Departure Time of Disposition: 18:12 (Fell on his unable to ambulate or bear weight on her right leg. It is flexes are negative. We will admit patient for further wo rkup and expert consultation) Impression: Primary Impression: Right hip pain Additional Impressions: Inability to ambulate due to hip Fall Qualified Codes: W19.XXXA - Unspecified fall, initial encounter Disposition: ADMITTED INPATIENT Admit to: Med Surg Condition: Serious Critical Care Note Critical Care Time?: No Stability Stability form required: No Heart Score Heart Score: Heart Score Response (Comments) Value History N/A 0 EKG N/A 0 Age N/A 0 Risk Factors N/A 0 Troponin N/A 0 Total 0 I personally scribed for CARMELITA GARCIA MD ([email or web address]) on 11/09/24 at 16:17. Electronically submitted by Hansel Tolliver ([email or web address]). I personally scribed for CARMELITA GARCIA MD ([email or web address]) on 11/09/24 at 17:15. Electronically submitted by Hansel Tolliver ([email or web address]). CARMELITA GARCIA MD November 09, 2024 16:17
--- NOTE | 2024-11-09 16:23 | DVH ---
EXAM: CT HEAD WITHOUT CONTRAST INDICATION: FALL TECHNIQUE: CT of the head without intravenous contrast. Radiation Dose : 1. Head: CT Dose: CTDI volume is 60.48 mGy. Dose-length product is 1070.84 mGy*cm The dose indicators for CT are the volume Computed Tomography (CT) Dose Index (CTDIvol) and the Dose Length Product (DLP), and are measured in units of mGy and mGy-cm, respectively. These indicators are not patient dose, but values generated from the CT scanner acquisition factors. The report includes radiation exposure data for exposures received during this examination. COMPARISON: None FINDINGS: There is no evidence of acute intracranial hemorrhage, extra-axial collection, mass effect, midline s hift, herniation or hydrocephalus. The ventricles, sulci and cisterns are age appropriate. The rosario-white differentiation is intact. Patchy periventricular and subcortical white matter hypoattenuation is nonspecific but may be related to small vessel ischemic disease. The visualized paranasal sinuses and mastoid air cells are clear. The surrounding soft tissues and osseous structures are unremarkable. IMPRESSION: 1. No acute intracranial abnormality.
[2024-11-09] MEDS: HYDROcodone-ACET 5/325MG TAB PO ONE (16:25)
--- NOTE | 2024-11-09 16:31 | DVH ---
EXAM: XY R HIP COMPLETE XRAY CLINICAL INDICATION: FALL TECHNIQUE: XY R HIP COMPLETE XRAY Comparison: None FINDINGS/IMPRESSION: There is no evidence of acute fracture or dislocation. The visualized joint space is well maintained. The alignment is anatomical. There is no radiopaque foreign body.
[2024-11-09 16:44] LABS: Urine Bacteria FEW /hpf (None Seen); Urine Blood Negative /uL (Negative); Urine Clarity Clear (Clear); Urine Color Yellow (Yellow); Urine Mucus FEW (None Seen); Urine Protein, UAD TRACE (Negative); Urine Specific Gravity 1.019 (1.001-1.035); Urine Squamous Epithelial Cell FEW /hpf (<5); Urine Urobilinogen Normal (Negative); Urine WBC 5 /HPF (0-5); Urine pH 5.5 (5.0-9.0)
[2024-11-09 18:41] LABS: Basophils # (auto) 0 10 ^3/uL (0-0.2); Basophils % (auto) 0.2 % (0.0-2.0); Eosinophils # (auto) 0 10 ^3/uL (0-0.8); Eosinophils % (auto) 0.4 % (0.0-7.0); Hematocrit 32.9 % (36.0-46.0); Hemoglobin 10.8 g/dL (12.2-16.2); Lymphocytes # (auto) 2.1 10 ^3/uL (0.4-5.4); Lymphocytes % (auto) 17.8 % (10.0-50.0); Mean Corpuscular Hemoglobin 27.3 pg (28.0-32.0); Mean Corpuscular Hgb Conc. 32.9 g/dL (32.0-36.0); Mean Corpuscular Volume 83.1 fL (80.0-100.0); Monocytes # (auto) 1.4 10 ^3/uL (0-1.3); Monocytes % (auto) 11.9 % (0.0-12.0); Neutrophils # (auto) 8.2 10 ^3/uL (1.6-8.6); Neutrophils % (auto) 69.7 % (37.0-80.0); Platelet Count (auto) 230 10^3/uL (140-450); Red Blood Cells 3.96 10^6/uL (4.0-5.20); Red Cell Distribution Width 15.8 % (11.8-14.3); White Blood Cell 11.8 10^3/uL (4.4-10.8)
[2024-11-09 18:57] LABS: Chloride 101 mmol/L (98-107); Potassium 3.9 mmol/L (3.5-5.1); Sodium 136 mmol/L (136-145)
[2024-11-09 18:58] LABS: Anion Gap 7 (5-15); Calcium 9.9 mg/dL (8.7-10.4); Carbon Dioxide 28 mmol/L (20-31)
[2024-11-09 19:03] LABS: Glucose 138 mg/dL (74-106)
[2024-11-09 19:35] LABS: BUN/Creatinine Ratio 21.1 (10.0-20.0); Blood Urea Nitrogen 16 mg/dL (9-23)
[2024-11-09] MEDS ORDERED: ACETAMINOPHEN 325 MG TAB PO PRN (20:45)
[2024-11-09] MEDS ORDERED: ONDANSETRON HCL 4 MG/2 ML VIAL IV PRN (20:45)
[2024-11-09] MEDS ORDERED: HYDROcodone-ACET 5/325MG TAB PO PRN (20:45)
[2024-11-09] MEDS ORDERED: DOCUSATE SOD 100 MG CAP PO PRN (20:45)
--- NOTE | 2024-11-09 20:55 | DVHHP2 ---
Admitting Diagnosis: Right hip pain History of Present Illness 84 year old female brought in by daughter presents to the ED with chief complaint of right hip pain and fall. Daughter reports that the patient had co mplained of right hip pain and difficulty bearing weight yesterday when the patient normally is able to ambulate on her own. Daughter relays that today when leaving the patient in bed for a moment and coming back into the room, she found the patient on the floor and did not witness her fall. Daughter states that the patient does not remember the events leading to her fall due to her dementia and the patient had an associated vomiting episode after eating after her fall. Daughter notes she is unsure if patient hit her head or not. Patient denies any numbness, weakness, chest pain, and SOB. 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 Hx Family History Family History: Reviewed,noncontributory to illness Social History Smoker: Non-Smoker Alcohol: Denies ETOH Use Drugs: Denies Drug Use Lives In: Home Patient Family History: Cervical cancer G8 SISTER Diabetes mellitus G8 MOTHER G8 FATHER FH: leukemia G8 MOTHER Allergies: Coded Allergies: NO KNOWN ALLERGIES (Unverified , 07/20/24) Home Meds Active Scripts Albuterol Sulfate (VENTOLIN MDI) 90 Mcg Ih, 90 MCG IN TID for 10 Days, #1 INH Prov:CAMPBELL LEDBETTER RESIDENT 07/22/24 Dextromethorphan-Guaifenesin (Robitussin-Dm) 10 Ml Sr, 10 ML PO BID for 5 Days, #1 SYP Prov:CAMPBELL LEDBETTER [facility] 07/22/24 Acetaminophen (Acetaminophen) 325 Mg Tab, 600 MG PO Q6HP PRN for 5 Days, #37 TAB Prov:CAMPBELL LEDBETTER [facility] [place] 07/22/24 Oseltamivir Phosphate (Tamiflu) 30 Mg Cp, 30 MG PO DAILY for 5 Days, #5 CAP Prov:CAMPBELL LEDBETTER RESIDENT 07/22/24 Reported Medications Multiple Vitamins W/ Minerals (Multivitamin) 1 Tab Tab, 1 TAB PO, TAB 07/21/24 Current Medications Current Medications Medications (Trade) Dose Ordered Sig/Roger Route PRN Reason Start Time Stop Time Status Last Admin Sodium Chloride (Saline Lock Ns) 10 ml Q8HR IV 11/09/24 22:00 UNV Docusate Sodium (Colace Capsule) 100 mg BIDPRN PRN PO FOR CONSTIPATION 11/09/24 20:45 UNV Acetaminophen (Tylenol Tablet) 650 mg Q6HP PRN PO PAIN SCALE 1-3 OR TEMP>100.4 11/09/24 20:45 UNV Acetaminophen/ Hydrocodone Bitart ([place] 5/325MG Tab) 1 tab Q4HP PRN PO MODERATE PAIN (4-6 PAIN SCALE) 11/09/24 20:45 UNV Ondansetron HCl (Zofran) 4 mg Q4HP PRN IV NAUSEA / VOMITING 11/09/24 20:45 UNV Enoxaparin Sodium (Lovenox) 40 mg DAILY SC 11/10/24 10:00 UNV Albuterol (Ventolin Hfa) 90 mcg TID IN 11/09/24 22:00 UNV Multivitamins/ Minerals (Mvi W/ Minerals Tablet) 1 tab DAILY PO 11/10/24 10:00 UNV Vital Signs Vital Signs Date Time Temp Pulse Resp B/P (MAP) Pulse Ox O2 Delivery O2 Flow Rate FiO2 11/09/24 18:28 98.3 76 17 158/71 (100) 98 98.3 Physical Exam Generally-84 years old woman, well nourished well developed. No apparent distress HEENT-atraumatic, normocephalic Heart-regular rate and rhythm Lungs clear to auscultate Abdomen soft nontender nondistended Musculoskeletal-no edema cyanosis. no muscular pain, pain on the bone. Neuro-Awake, alert, answer questions, follow commands. strength and sensation intact. Results Labs Test 11/09/24 18:21 11/09/24 15:38 11/09/24 13:21 Range/Units White Blood Count 11.8 H 4.4-10.8 10^3/uL Red Blood Count 3.96 L 4.0-5.20 10^6/uL Hemoglobin 10.8 L 12.2-16.2 g/dL Hematocrit 32.9 L 36.0-46.0 % Mean Corpuscular Volume 83.1 80.0-100.0 fL Mean Corpuscular Hemoglobin 27.3 L 28.0-32.0 pg Mean Corpuscular Hemoglobin Concent 32.9 32.0-36.0 g/dL Red Cell Distribution Width 15.8 H 11.8-14.3 % Platelet Count 230 140-450 10^3/uL Mean Platelet Volume 8.6 6.9-10.8 fL Neutrophils (%) (Auto) 69.7 37.0-80.0 % Lymphocytes (%) (Auto) 17.8 10.0-50.0 % Monocytes (%) (Auto) 11.9 0.0-12.0 % Eosinophils (%) (Auto) 0.4 0.0-7.0 % Basophils (%) (Auto) 0.2 0.0-2.0 % Neutrophils # (Auto) 8.2 1.6-8.6 10 ^3/uL Lymphocytes # (Auto) 2.1 0.4-5.4 10 ^3/uL Monocytes # (Auto) 1.4 H 0-1.3 10 ^3/uL Eosinophils # (Auto) 0 0-0.8 10 ^3/uL Basophils # (Auto) 0 0-0.2 10 ^3/uL Nucleated Red Blood Cells 0.0 % Sodium Level 136 136-145 mmol/L Potassium Level 3.9 3.5-5.1 mmol/L Chloride Level 101 98-107 mmol/L Carbon Dioxide Level 28 20-31 mmol/L Anion Gap 7 5-15 Blood Urea Nitrogen 16 9-23 mg/dL Creatinine 0.76 0.550-1.02 mg/dL Glomerular Filtration Rate Calc 78 >90 mL/min BUN/Creatinine Ratio 21.1 H 10.0-20.0 Serum Glucose 138 H 74-106 mg/dL Calcium Level 9.9 8.7-10.4 mg/dL Urine Color Yellow Yellow Urine Clarity Clear Clear Urine pH 5.5 5.0-9.0 Urine Specific [place] 1.019 1.001-1.035 Urine Protein Trace H Negative Urine Ketones Negative Negative Urine Blood Negative Negative /uL Urine Nitrite Negative Negative Urine Bilirubin Negative Negative Urine Urobilinogen Normal Negative mg/dL Urine Leukocyte Esterase Trace Negative /uL Urine RBC 22 0 - 4 /hpf Urine Microscopic WBC 5 0-5 /HPF Urine Squamous Epithelial Cells Few <5 /hpf Urine Bacteria Few H None Seen /hpf Urine Mucus Few None Seen Urine Glucose 2+ H Normal mg/dL POC Glucose 183 H 70-106 mg/dl Primary Diagnosis Right hip pain Unsteady gait Hypertension Plan Patient is not on any medication for hypertension. Follow the PCP regarding starting antihypertensive X-ray of the right hip is negative for fracture Ordered pelvis AP to assess for arthritis Pain control PT assessment IV fluids Full code Lovenox for DVT prophylaxis No GI prophylaxis needed Cardiac diet Plan discussed with: Patient Problems List: (1) Fall Status: Acute (2) Right hip pain Status: Acute (3) Generalized weakness Status: Acute (4) Inability to ambulate due to hip Status: Acute Date of Service: November 09, 2024 Billing Provider: ALIS MENDOZA MD Common Visit Codes: [id number] INP/OBS CARE (MOD) ALIS MENDOZA MD November 09, 2024 20:55
[2024-11-09] MEDS ORDERED: hydrALAZINE HCL 20 MG/ML VL IV PRN (21:00)
[2024-11-09 21:28] VITALS: BP 158/71; PULSE 76; RESP 18; TEMP 98.3; O2SAT 98
[2024-11-09] MEDS ORDERED: ALBUTEROL MEDNEB 2.5 mg/3ml NEB NEB SCH (22:00)
[2024-11-09] MEDS ORDERED: ALBUTEROL SULF HFA 90MCG INH 200DOSE IN SCH (22:00)
[2024-11-09] MEDS ORDERED: ALBUTEROL SULF 2.5 MG/0.5ML(0.5%) NEB SOLN NEB PRN (22:00)
[2024-11-10] VITALS (11 sets, daily range): BP systolic 130–146; BP diastolic 57–76; PULSE 68–75; RESP 15–19; TEMP 97.3–99; O2SAT 93–98
[2024-11-10] MEDS: SODIUM CHLOR 0.9% PF (SALINE LOCK) 10ML VIAL/SYR IV SCH (00:29)
--- NOTE | 2024-11-10 01:23 | DVH ---
CLINICAL INDICATION: pelvic pain r/o fracture TECHNIQUE: XY PELVIS AP Comparison: None FINDINGS / IMPRESSION: Single AP radiograph of the pelvis demonstrates no evidence of fracture or dislocation.
--- NOTE | 2024-11-10 06:53 | ECG ---
[facility] Test Date: 2024-11-09 Test Time: 13:28:57 Pat Name: CELINA BANUELOS Department: ED Room: 0205 A Gender: F Pasteurizer: KATJA : 1940 Requested By: TIEN COLE Order Number: [id number] Reading MD: Albert Lancaster Measurements Intervals [place] Rate: 95 P: 43 CO: 217 QRS: -32 QRSD: 99 T: 20 QT: 365 QTc: 459 Interpretive Statements Sinus rhythm Prolonged CO interval Abnormal R-wave progression, early transition Left ventricular hypertrophy Baseline wander in lead(s) I,II,III,aVR,aVL,aVF,V6 Electronically Signed On 11-14-2024 11:40:57 PDT by Albert Lancaster Please click the below link to view image of tracing.
[2024-11-10 07:34] LABS: Basophils # (auto) 0 10 ^3/uL (0-0.2); Basophils % (auto) 0.1 % (0.0-2.0); Eosinophils # (auto) 0.1 10 ^3/uL (0-0.8); Eosinophils % (auto) 1.5 % (0.0-7.0); Hematocrit 31.5 % (36.0-46.0); Hemoglobin 10.3 g/dL (12.2-16.2); Lymphocytes # (auto) 1.9 10 ^3/uL (0.4-5.4); Lymphocytes % (auto) 24.4 % (10.0-50.0); Mean Corpuscular Hgb Conc. 32.8 g/dL (32.0-36.0); Mean Corpuscular Volume 82.2 fL (80.0-100.0); Monocytes # (auto) 0.9 10 ^3/uL (0-1.3); Monocytes % (auto) 11.3 % (0.0-12.0); Neutrophils # (auto) 4.9 10 ^3/uL (1.6-8.6); Neutrophils % (auto) 62.7 % (37.0-80.0); Platelet Count (auto) 213 10^3/uL (140-450); Red Blood Cells 3.83 10^6/uL (4.0-5.20); Red Cell Distribution Width 15.5 % (11.8-14.3); White Blood Cell 7.9 10^3/uL (4.4-10.8)
[2024-11-10 07:57] LABS: Albumin 3.8 g/dL (3.2-4.8); Alkaline Phosphatase 78 U/L (46-116); Anion Gap 7 (5-15); BUN/Creatinine Ratio 16.9 (10.0-20.0); Blood Urea Nitrogen 13 mg/dL (9-23); Calcium 9.3 mg/dL (8.7-10.4); Carbon Dioxide 30 mmol/L (20-31); Chloride 102 mmol/L (98-107); Glucose 105 mg/dL (74-106); Potassium 4.2 mmol/L (3.5-5.1); Sodium 139 mmol/L (136-145); Total Protein 6.7 g/dL (5.7-8.2)
[2024-11-10 07:58] LABS: Bilirubin, Total 0.4 mg/dL (0.2-1.0)
[2024-11-10 08:04] LABS: Alanine Aminotransferase < 9 U/L (7-40); Aspartate Aminotransferase 12 U/L (13-40)
[2024-11-10] MEDS: MULTIPLE VITAMINS W/ MINERALS TAB PO SCH (09:53)
[2024-11-10] MEDS: ENOXAPARIN SOD 40 MG/0.4 ML SYRINGE SC SCH (09:54)
--- NOTE | 2024-11-10 11:10 | DVHPN2 ---
Subjective 84-year-old female with a history of dementia and hypertension who lives with her daughter was brought to the hospital because she was having pain in the right hip area Apparently according to the daughter she found her on the floor but she does not think she actually fell and hurt her back because she was having that pain even before she wants found her on the floor Currently her main complaint is pain in the right hip area and the right lower back Changes from previous H/P or p: Changes Objective Vitals Vital Signs Date Time Temp Pulse Resp B/P (MAP) Pulse Ox O2 Delivery O2 Flow Rate FiO2 11/10/24 10:20 98 Room Air 0.0 11/10/24 10:20 21 11/10/24 09:00 97.3 68 15 146/65 (92) 97.3 General Appearance: Alert, Oriented X3, Cooperative, No acute distress Lungs: Clear to auscultation, Normal air movement Cardiovascular: Regular rate, Normal S1 Abdomen: Normal bowel sounds, Soft, No tenderness Extremities: No edema Medications Current Medications Medications Dose Ordered Sig/Roger Route Start Time Stop Time Status Last Admin Dose Admin Sodium Chloride 10 ml Q8HR IV 11/09/24 22:00 11/10/24 05:30 10 ML Docusate Sodium 100 mg BIDPRN PRN PO 11/09/24 20:45 Acetaminophen 650 mg Q6HP PRN PO 11/09/24 20:45 Acetaminophen/ Hydrocodone Bitart 1 tab Q4HP PRN PO 11/09/24 20:45 Ondansetron HCl 4 mg Q4HP PRN IV 11/09/24 20:45 Enoxaparin Sodium 40 mg DAILY SC 11/10/24 10:00 11/10/24 09:54 40 MG Albuterol 90 mcg TID IN 11/09/24 22:00 UNV Multivitamins/ Minerals 1 tab DAILY PO 11/10/24 10:00 11/10/24 09:53 1 TAB Hydralazine HCl 5 mg Q6H PRN IV 11/09/24 21:00 Albuterol 2.5 mg Q6HPRN PRN NEB 11/09/24 22:00 Laboratory Results Laboratory Tests 11/10/24 06:53 Chemistry Test 11/09/24 18:21 11/10/24 06:53 Calcium Level 9.9 mg/dL (8.7-10.4) 9.3 mg/dL (8.7-10.4) Albumin 3.8 g/dL (3.2-4.8) Total Protein 6.7 g/dL (5.7-8.2) LFT Test 11/10/24 06:53 Alanine Aminotransferase (ALT) < 9 U/L (7-40) Alkaline Phosphatase 78 U/L (46-116) Aspartate Amino Transferase (AST) 12 U/L (13-40) L Total Bilirubin 0.4 mg/dL (0.2-1.0) Urinalysis Test 11/09/24 15:38 Urine Color Yellow (Yellow) Urine Clarity Clear (Clear) Urine pH 5.5 (5.0-9.0) Urine Specific [place] 1.019 (1.001-1.035) Urine Protein Trace (Negative) H Urine Ketones Negative (Negative) Urine Blood Negative /uL (Negative) Urine Nitrite Negative (Negative) Urine Bilirubin Negative (Negative) Urine Urobilinogen Normal mg/dL (Negative) Urine Leukocyte Esterase Trace /uL (Negative) Urine RBC 22 /hpf (0 - 4) Urine Microscopic WBC 5 /HPF (0-5) Urine Squamous Epithelial Cells Few /hpf (<5) Urine Bacteria Few /hpf (None Seen) H Urine Mucus Few (None Seen) Urine Glucose 2+ mg/dL (Normal) H Assessment/Plan Assessment/Plan Right lower back pain Right hip pain Dementia Hypertension Plan CT scan of the head was negative Hip and pelvis x-rays were negative Physical therapy to ambulate the patient Pain control as needed with the Tylenol and [place] p.r.n. Monitor the patient closely The rest of the management will depend on the hospital course Full code Advance directives discussed for 22 minutes Care plan discussed with the daughter at the bedside Plan discussed with: Patient, Daughter Date of Service: November 10, 2024 Billing Provider: MAGGIE MCDANIEL MD Common Visit Codes: [id number] INP/OBS CARE(HIGH) Secondary Visit Codes: [id number] CARE PLAN 30 MINUTES MAGGIE MCDANIEL MD November 10, 2024 11:10
[2024-11-11] VITALS (11 sets, daily range): BP systolic 139–154; BP diastolic 70–84; PULSE 65–92; RESP 17–20; TEMP 96.9–98.7; O2SAT 94–100
[2024-11-11 06:30] LABS: Alanine Aminotransferase 11 U/L (7-40); Albumin 3.9 g/dL (3.2-4.8); Alkaline Phosphatase 78 U/L (46-116); Anion Gap 8 (5-15); Aspartate Aminotransferase 15 U/L (13-40); BUN/Creatinine Ratio 18.2 (10.0-20.0); Basophils # (auto) 0 10 ^3/uL (0-0.2); Basophils % (auto) 0.2 % (0.0-2.0); Bilirubin, Total 0.4 mg/dL (0.2-1.0); Blood Urea Nitrogen 14 mg/dL (9-23); Calcium 9.1 mg/dL (8.7-10.4); Carbon Dioxide 28 mmol/L (20-31); Chloride 103 mmol/L (98-107); Eosinophils # (auto) 0.2 10 ^3/uL (0-0.8); Hematocrit 31.6 % (36.0-46.0); Hemoglobin 10.7 g/dL (12.2-16.2); Lymphocytes # (auto) 1.9 10 ^3/uL (0.4-5.4); Lymphocytes % (auto) 26.6 % (10.0-50.0); Mean Corpuscular Hemoglobin 27.8 pg (28.0-32.0); Mean Corpuscular Hgb Conc. 33.8 g/dL (32.0-36.0); Mean Corpuscular Volume 82.4 fL (80.0-100.0); Monocytes # (auto) 0.8 10 ^3/uL (0-1.3); Monocytes % (auto) 11.6 % (0.0-12.0); Neutrophils # (auto) 4.2 10 ^3/uL (1.6-8.6); Neutrophils % (auto) 58.6 % (37.0-80.0); Nucleated Red Blood Cells % 0.1 %; Platelet Count (auto) 226 10^3/uL (140-450); Red Blood Cells 3.83 10^6/uL (4.0-5.20); Red Cell Distribution Width 15.3 % (11.8-14.3); Sodium 139 mmol/L (136-145); Total Protein 6.9 g/dL (5.7-8.2); White Blood Cell 7.2 10^3/uL (4.4-10.8)
[2024-11-11 06:40] LABS: Glucose 107 mg/dL (74-106)
--- NOTE | 2024-11-11 11:19 | DVHPN2 ---
Subjective Better She is ambulating better now with some slight pain in the right hip Changes from previous H/P or p: Changes Objective Vitals Vital Signs Date Time Temp Pulse Resp B/P (MAP) Pulse Ox O2 Delivery O2 Flow Rate FiO2 11/11/24 08:15 17 Room Air* 0 21 11/11/24 07:45 98.2 65 154/72 (99) 100 98.2 Intake/Output Intake and Output 11/11/24 07:00 Intake Total 900 ml Balance 900 ml Intake Oral 900 ml # Voids 5 General Appearance: Alert, Oriented X3, Cooperative, No acute distress Lungs: Clear to auscultation, Normal air movement Cardiovascular: Regular rate, Normal S1 Abdomen: Normal bowel sounds, Soft, No tenderness Extremities: No edema Medications Current Medications Medications Dose Ordered Sig/Roger Route Start Time Stop Time Status Last Admin Dose Admin Sodium Chloride 10 ml Q8HR IV 11/09/24 22:00 11/11/24 05:55 10 ML Docusate Sodium 100 mg BIDPRN PRN PO 11/09/24 20:45 Acetaminophen 650 mg Q6HP PRN PO 11/09/24 20:45 Acetaminophen/ Hydrocodone Bitart 1 tab Q4HP PRN PO 11/09/24 20:45 Ondansetron HCl 4 mg Q4HP PRN IV 11/09/24 20:45 Enoxaparin Sodium 40 mg DAILY SC 11/10/24 10:00 11/11/24 08:39 40 MG Albuterol 90 mcg TID IN 11/09/24 22:00 UNV Multivitamins/ Minerals 1 tab DAILY PO 11/10/24 10:00 11/11/24 08:38 1 TAB Hydralazine HCl 5 mg Q6H PRN IV 11/09/24 21:00 Albuterol 2.5 mg Q6HPRN PRN NEB 11/09/24 22:00 Laboratory Results Laboratory Tests 11/11/24 04:43 Chemistry Test 11/11/24 04:43 Albumin 3.9 g/dL (3.2-4.8) Calcium Level 9.1 mg/dL (8.7-10.4) Total Protein 6.9 g/dL (5.7-8.2) LFT Test 11/11/24 04:43 Alanine Aminotransferase (ALT) 11 U/L (7-40) Alkaline Phosphatase 78 U/L (46-116) Aspartate Amino Transferase (AST) 15 U/L (13-40) Total Bilirubin 0.4 mg/dL (0.2-1.0) Urinalysis Test 11/09/24 15:38 Urine Color Yellow (Yellow) Urine Clarity Clear (Clear) Urine pH 5.5 (5.0-9.0) Urine Specific [employer] 1.019 (1.001-1.035) Urine Protein Trace (Negative) H Urine Ketones Negative (Negative) Urine Blood Negative /uL (Negative) Urine Nitrite Negative (Negative) Urine Bilirubin Negative (Negative) Urine Urobilinogen Normal mg/dL (Negative) Urine Leukocyte Esterase Trace /uL (Negative) Urine RBC 22 /hpf (0 - 4) Urine Microscopic WBC 5 /HPF (0-5) Urine Squamous Epithelial Cells Few /hpf (<5) Urine Bacteria Few /hpf (None Seen) H Urine Mucus Few (None Seen) Urine Glucose 2+ mg/dL (Normal) H Assessment/Plan Assessment/Plan Right lower back pain Right hip pain Dementia Hypertension Plan CT scan of the head was negative Hip and pelvis x-rays were negative Physical therapy to ambulate the patient Pain control as needed with the Tylenol and [place] p.r.n. Monitor the patient closely The rest of the management will depend on the hospital course Full code Advance directives discussed for 22 minutes Care plan discussed with the daughter at the bedside 11/11/2024: Continue physical therapy Monitor closely in the hospital for 1 more day Continue the current management Discussed with the daughter at the bedside Plan discussed with: Patient, Daughter Date of Service: November 11, 2024 Billing Provider: MAGGIE MCDANIEL MD Common Visit Codes: [id number] INP/OBS CARE(HIGH) MAGGIE MCDANIEL MD November 11, 2024 11:19
[2024-11-12 01:00] VITALS: BP 137/84; PULSE 71; RESP 19; TEMP 96.7; O2SAT 96
[2024-11-12 05:00] VITALS: BP 146/71; PULSE 67; RESP 19; TEMP 97.5; O2SAT 98
[2024-11-12 06:04] LABS: Basophils # (auto) 0 10 ^3/uL (0-0.2); Basophils % (auto) 0.3 % (0.0-2.0); Eosinophils # (auto) 0.3 10 ^3/uL (0-0.8); Eosinophils % (auto) 4.5 % (0.0-7.0); Hematocrit 33.5 % (36.0-46.0); Hemoglobin 10.9 g/dL (12.2-16.2); Lymphocytes # (auto) 2.2 10 ^3/uL (0.4-5.4); Lymphocytes % (auto) 28.9 % (10.0-50.0); Mean Corpuscular Hemoglobin 27.1 pg (28.0-32.0); Mean Corpuscular Hgb Conc. 32.6 g/dL (32.0-36.0); Mean Corpuscular Volume 83.1 fL (80.0-100.0); Monocytes # (auto) 0.8 10 ^3/uL (0-1.3); Monocytes % (auto) 11.1 % (0.0-12.0); Neutrophils # (auto) 4.2 10 ^3/uL (1.6-8.6); Neutrophils % (auto) 55.2 % (37.0-80.0); Platelet Count (auto) 252 10^3/uL (140-450); Red Blood Cells 4.04 10^6/uL (4.0-5.20); Red Cell Distribution Width 15.6 % (11.8-14.3); White Blood Cell 7.5 10^3/uL (4.4-10.8)
[2024-11-12 06:18] LABS: Alanine Aminotransferase 11 U/L (7-40); Alkaline Phosphatase 83 U/L (46-116); Anion Gap 8 (5-15); Aspartate Aminotransferase 19 U/L (13-40); Blood Urea Nitrogen 15 mg/dL (9-23); Calcium 9.7 mg/dL (8.7-10.4); Carbon Dioxide 27 mmol/L (20-31); Chloride 105 mmol/L (98-107); Glucose 103 mg/dL (74-106); Sodium 140 mmol/L (136-145); Total Protein 6.9 g/dL (5.7-8.2)
[2024-11-12 06:19] LABS: Bilirubin, Total 0.4 mg/dL (0.2-1.0)
[2024-11-12 08:00] VITALS: PULSE 78; RESP 18; O2SAT 97
[2024-11-12 08:30] VITALS: BP 131/61; PULSE 60; RESP 18; TEMP 97.9; O2SAT 96
[2024-11-12 10:00] VITALS: O2SAT 96
--- NOTE | 2024-11-12 17:07 | DVHDS2 ---
Discharge Summary Date of Admission November 09, 2024 at 20:38 Date of Discharge: November 12, 2024 Labs/Diagnostic Data: Laboratory Results Test 11/12/24 04:58 11/09/24 15:38 11/09/24 13:21 White Blood Count 7.5 10^3/uL (4.4-10.8) Red Blood Count 4.04 10^6/uL (4.0-5.20) Hemoglobin 10.9 g/dL (12.2-16.2) Hematocrit 33.5 % (36.0-46.0) Mean Corpuscular Volume 83.1 fL (80.0-100.0) Mean Corpuscular Hemoglobin 27.1 pg (28.0-32.0) Mean Corpuscular Hemoglobin Concent 32.6 g/dL (32.0-36.0) Red Cell Distribution Width 15.6 % (11.8-14.3) Platelet Count 252 10^3/uL (140-450) Mean Platelet Volume 8.3 fL (6.9-10.8) Neutrophils (%) (Auto) 55.2 % (37.0-80.0) Lymphocytes (%) (Auto) 28.9 % (10.0-50.0) Monocytes (%) (Auto) 11.1 % (0.0-12.0) Eosinophils (%) (Auto) 4.5 % (0.0-7.0) Basophils (%) (Auto) 0.3 % (0.0-2.0) Neutrophils # (Auto) 4.2 10 ^3/uL (1.6-8.6) Lymphocytes # (Auto) 2.2 10 ^3/uL (0.4-5.4) Monocytes # (Auto) 0.8 10 ^3/uL (0-1.3) Eosinophils # (Auto) 0.3 10 ^3/uL (0-0.8) Basophils # (Auto) 0 10 ^3/uL (0-0.2) Nucleated Red Blood Cells 0.0 % Sodium Level 140 mmol/L (136-145) Potassium Level 4.0 mmol/L (3.5-5.1) Chloride Level 105 mmol/L (98-107) Carbon Dioxide Level 27 mmol/L (20-31) Anion Gap 8 (5-15) Blood Urea Nitrogen 15 mg/dL (9-23) Creatinine 0.75 mg/dL (0.550-1.02) Glomerular Filtration Rate Calc 79 mL/min (>90) BUN/Creatinine Ratio 20.0 (10.0-20.0) Serum Glucose 103 mg/dL (74-106) Calcium Level 9.7 mg/dL (8.7-10.4) Total Bilirubin 0.4 mg/dL (0.2-1.0) Aspartate Amino Transferase (AST) 19 U/L (13-40) Alanine Aminotransferase (ALT) 11 U/L (7-40) Alkaline Phosphatase 83 U/L (46-116) Total Protein 6.9 g/dL (5.7-8.2) Albumin 4.0 g/dL (3.2-4.8) Urine Color Yellow (Yellow) Urine Clarity Clear (Clear) Urine pH 5.5 (5.0-9.0) Urine Specific [place] 1.019 (1.001-1.035) Urine Protein Trace (Negative) Urine Ketones Negative (Negative) Urine Blood Negative /uL (Negative) Urine Nitrite Negative (Negative) Urine Bilirubin Negative (Negative) Urine Urobilinogen Normal mg/dL (Negative) Urine Leukocyte Esterase Trace /uL (Negative) Urine RBC 22 /hpf (0 - 4) Urine Microscopic WBC 5 /HPF (0-5) Urine Squamous Epithelial Cells Few /hpf (<5) Urine Bacteria Few /hpf (None Seen) Urine Mucus Few (None Seen) Urine Glucose 2+ mg/dL (Normal) POC Glucose 183 mg/dl (70-106) Other Laboratory Tests 11/12/24 04:58 Brief Hx & Hospital Course: Final diagnoses: Right lower back pain Right hip pain Dementia Hypertension 84-year-old female who fell at home was brought to the hospital and evaluation here showed no fractures with multiple x-rays Her main complaint was right hip pain and right lower low back pain She was seen with physical therapy and she ambulated well Today she was asymptomatic. She is more alert and oriented. Daughter at the bedside indicated that the patient is ready to go home. The patient appears to be in no distress. Discharged home and continue same home medications and follow up with her primary care physician as an outpatient as soon as possible. Continue same home medications. Condition at Discharge: Stable Final Diagnosis/Problems List Right lower back pain Right hip pain Dementia Hypertension Discharge Disposition: Home SNF Discharge Will this Physician continue t: No Discharge Instruct/Medications Diet: Cardiac 2g Na,low cholest Activity: No Restrictions, As Tolerated Follow Up/Referral: PCP ALEM Medications: Same home meds Discharge Statement: "Patient was advised to return to the ER or call 911 if any headaches, dizziness, shortness of breath, chest pain, abdominal pain, bleeding, fevers, or worsening of medical condition. Patient was counseled about treatment plan, medications, possible side effects, patientverbalized understanding. All questions were answered to the best of my ability. This discharge took greater then 30 minutes in planning, reviewing documentation, counseling the patient, and discussing with other team members." ASSESSMENT ASSESSMENT Assessment Right lower back pain Right hip pain Dementia Hypertension Date of Service: November 12, 2024 Billing Provider: MAGGIE MCDANIEL MD Common Visit Codes: [id number]/OBS DISCH DAY >30min MAGGIE MCDANIEL MD November 12, 2024 17:07
== END 2024-11-12 11:49 | disposition home or self-care (01) | DRG 563 ==
LOC: ER 13:13 → OVERFLOW 20:38 → CENTRAL 23:04
PROVIDERS: ADMIT Internal Medicine Geriatric Medicine; ATTEND Internal Medicine Geriatric Medicine
DX: S39.012A Strain of muscle, fascia and tendon of lower back, initial encounter (principal); I10 Essential (primary) hypertension; F03.90 Unspecified dementia, unspecified severity, without behavioral disturbance, psychotic disturbance, mood disturbance, and anxiety; Z79.1 Long term (current) use of non-steroidal anti-inflammatories (NSAID); Z79.899 Other long term (current) drug therapy; Z83.3 Family history of diabetes mellitus; Z80.8 Family history of malignant neoplasm of other organs or systems; Z80.6 Family history of leukemia; X58.XXXA Exposure to other specified factors, initial encounter; Y93.89 Activity, other specified; Y92.89 Other specified places as the place of occurrence of the external cause
CPT/HCPCS: 36415; 70450; 72170; 73502; 80048; 80053; 81001; 82962; 85025; 93005; 97110; 97116; 97163; 97530; G0378